=== PATIENT | male | born 1970 ===

== ENCOUNTER 2020-03-19 17:31 | Emergency (ER) | payer OTHER, SELFPAY ==
[2020-03-19 18:55] VITALS: BP 124/87; PULSE 67; RESP 16; TEMP 36.7; O2SAT 98; BMI 24.3
--- NOTE | 2020-03-19 19:33 | ED.GENADULT ---
HPI - General Adult General Chief complaint: Wound/Laceration Stated complaint: L eye injury Time Seen by Provider: 03/19/20 19:28 Source: patient Mode of arrival: ambulatory Limitations: no limitations History of Present Illness HPI narrative: patient comes to emergency room complaining of a small laceration under his left eye. Patient states he was working with wood, which hit him and the face right below the eye. Patient states he does not have any eye pain. He has no eye injury, no foreign body sensation. Patient has a small 2-3 mm laceration with minimal bleeding,. Patient states that he is not on any blood thinners. patient states he is up-to-date with his immunizations and with his tetanus shot complaint: laceration Related Data Allergies Allergy/AdvReac Type Severity Reaction Status Date / Time acetaminophen [From Percocet] Allergy Severe Swelling Verified 03/19/20 19:33 oxycodone [From Percocet] Allergy Severe Swelling Verified 03/19/20 19:33 Review of Systems Review of Systems: Constitutional : No Weight loss, No Fever, No Chills, No Night Sweats, No Fatigue, No Malaise ENT/Mouth : No Hearing loss, No Ear Pain, No Nasal Congestion, No Sinus Pain, No Hoarseness, No sore throat, No Rhinorrhea, No Swallowing Difficulty Eyes: No Eye Pain, No Swelling, No Redness, No Foreign Body, No Discharge, No Vision Changes Cardiovascular : No Chest Pain, No SOB, No Dyspnea on Exertion, No Orthopnea, No Edema, No Palpitations Respiratory : No Cough, No Sputum, No Wheezing, No Smoke Exposure, No Dyspnea Gastrointestinal : No Nausea, No Vomiting, No Diarrhea, No Constipation, No abdominal Pain, No Hematochezia, No Melena Genitourinary : no irregular bleeding, No Dysuria, No Urinary Frequency, No Hematuria, No Urinary Incontinence, No Urgency, No Flank Pain, No Urinary Flow Changes, No Hesitancy Musculoskeletal : No joint pain, No Myalgias, No Joint Swelling Skin : 2-3 mm laceration below the left eye Neuro : No Weakness, No Numbness, No Paresthesias, No Loss of Consciousness, No Dizziness, No Headache Psych : No Anxiety/Panic, No Depression, No SI/HI/AH/VH, No Social Issues, Heme/Lymph: No Bruising, No Bleeding,No Lymphadenopathy Endocrine : No Polyuria, No Polydipsia, No Temperature Intolerance [facility] Past Medical History Medical History (Updated 03/19/20 @ 19:35 by Eleonora Parr MD) Cataracts, both eyes Retinal detachment Social History Social History Advance Directives: No Advance Directives Information Provided: Yes Physical Exam Vital Signs: Vital Signs: Last Vital Signs Temp 98.1 F 03/19/20 18:55 Pulse 67 03/19/20 18:55 Resp 16 03/19/20 18:55 BP 124/87 03/19/20 18:55 Pulse Ox 98 03/19/20 18:55 Body Mass Index 24.3 Appearance: Alert. Oriented X3. No acute distress. Eyes: Pupils equal, round and reactive to light. ENT: Pharynx normal. Neck: Normal inspection. Neck supple. No lymph nodes noted. No crepitus CVS: Normal heart rate and rhythm. Pulses normal. Normal S1 and S2 Respiratory: No respiratory distress. Breath sounds normal. No Wheezing. No rales Abdomen: Soft and nontender. No rigidity. No distention. good BS x4 Skin: since the 3 mm laceration below the left eye over the zygomatic bone, minimal bleeding. Minimal pain on palpation around the laceration, no facial bone fracture suspected. Extremities: No lower extremity edema. No lower extremity edema. No Lacerations. No Rash Neuro: Oriented X 3. No motor deficit. No sensory deficit. Moving all extermities. No slurred speech. Course Course Course Narrative: I discussed with the patient that he will need 2-3 small stitches to stop the bleeding and to help healing. Patient states that he will only allow a plastic surgeon to stitches face. I discussed with the patient that we do not have a plastic surgeon in this facility. Patient requesting to be discharged so he can go to [facility] Discharge Plan Discharge Clinical Impression: Laceration Patient Disposition: Home, Self-Care Instructions: Laceration (ED) Additional Instructions: You declined any intervention at this facility. Per your request, you are being discharged. Please follow-up with your primary care physician tomorrow. If you have any worsening or new symptoms, please return to the emergency room or call 911
== END 2020-03-19 19:44 | disposition home or self-care (01) ==
PROVIDERS: Emergency Provider Emergency Medicine
DX: S01.112A Laceration without foreign body of left eyelid and periocular area, initial encounter (principal); H57.12 Ocular pain, left eye; Y29.XXXA Contact with blunt object, undetermined intent, initial encounter; Y93.9 Activity, unspecified; Y92.9 Unspecified place or not applicable; Y99.9 Unspecified external cause status
CPT/HCPCS: 99283

== ENCOUNTER 2024-05-27 14:42 | Outpatient (AMB) | payer BC, SELFPAY ==
[2024-05-27 14:46] VITALS: BP 108/70; PULSE 97; O2SAT 98; BMI 26.7
--- NOTE | 2024-05-27 14:46 | HO.NEPHOV ---
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 Recently took a trip to [place]. He was in [facility] ER for significant left flank pain. CT scan did not reveal any significant abnormality other than diverticulosis. The pain was sharp. He initially to us in the range of about 8 or 9/10. Few hours later it dropped down to around 3. This was associated with dysuria. No gross hematuria. Since then he has had no further pain. The emergency room the urinalysis showed trace blood. Specific gravity was more than 1.030. [facility] Medical History (Updated 05/27/24 @ 15:05 by Jared Harris MD) Retinal detachment Cataracts, both eyes Review of Systems Const Denies fever(s) and Denies weight loss Card Denies chest pain Resp Denies cough and Denies hemoptysis GI Denies abdominal pain, Denies diarrhea and Denies nausea Musc Denies back pain Neuro Denies focal weakness Physical Exam Vital Signs: Last Vital Signs Pulse 97 05/27/24 14:46 BP 108/70 05/27/24 14:46 Pulse Ox 98 05/27/24 14:46 Oxygen Delivery Method Room Air 05/27/24 14:46 BMI result Body Mass Index 26.7 Comfortable Neck supple no JVD. Lungs entry equal no rales. Heart S1-S2 heard no gallop or rub. Abdomen soft nontender. Neuro alert awake oriented. No asterixis. Extremities no edema. Results Reviewed Nephrology Results: No Data to Display Assessment & Plan Assessment & Plan (1) Nephrolithiasis: Code(s): N20.0 - Calculus of kidney Category: Medical Plan 53-year-old man with left flank pain most likely due to renal colic. I have initiated a workup including a 24 urine collection. Encouraged him to stay on low-sodium diet Encouraged him to increase fluid intake to maintain a urine output of 2 L. Further workup will be based on the outcome of the 24 hour urine collection Orders: Orders Citric Acid 24hr Urine Today N20.0 - Calculus of kidney Sodium, 24Hr Urine Group Today N20.0 - Calculus of kidney Creatinine, 24 Hr Group Today N20.0 - Calculus of kidney Calcium, 24 Hr Ur Today N20.0 - Calculus of kidney Oxalate, 24 Hr Today N20.0 - Calculus of kidney Uric Acid, 24Hr Urine Group Today N20.0 - Calculus of kidney Coding Level of Care Code New Pt Level 4 (26965) Diagnoses Nephrolithiasis N20.0
== END 2024-05-27 15:09 | disposition home or self-care (01) ==
PROVIDERS: PCP Pediatrics; Visit Provider Internal Medicine Hypertension Specialist
DX: N20.0 Calculus of kidney (principal)
CPT/HCPCS: 99204